=== PATIENT | male | born 1985 | race Caucasian/White ===

== ENCOUNTER 2018-12-13 10:58 | Emergency (ER) | payer OTHER ==
[2018-12-13 11:10] VITALS: BP 129/73; PULSE 66; RESP 18; TEMP 98
--- NOTE | 2018-12-13 11:32 | ED ---
General Adult HPI - General Chief complaint: Chest Pain Stated complaint: Chest pain Time Seen by Provider: 12/13/18 11:00 Source: EMS, RN notes reviewed Mode of arrival: EMS Limitations: no limitations - History of Present Illness Initial comments: This is a 33-year-old male who presents emergency Department complaining of right-sided chest pain. Patient states he was on his way to his parole eating and he was late so he was running and then started having chest pain and so he came to the emergency department. His symptoms I walked into the room patient states he no longer had chest pain he was no longer short of breath and he had no symptoms whatsoever. Patient states he thinks was just a panic attack because he was late so he did not want to have any workup done whatsoever and wanted to sign out AMA. I explained the risks tone and he insisted on signing out AMA. Review of Systems ROS Statement: Those systems with pertinent positive or pertinent negative responses have been documented in the HPI. ROS Other: All systems not noted in ROS Statement are negative. Past Medical History Past Medical History: No Reported History History of Any Multi-Drug Resistant Organisms: None Reported Past Surgical History: Appendectomy Additional Past Surgical History / Comment(s): Ulnar replacement L arm Past Psychological History: Anxiety Smoking Status: Current every day smoker Past Alcohol Use History: None Reported Past Drug Use History: Cocaine, Marijuana, Opiates General Exam - General Exam Comments Initial Comments: GENERAL: Patient is well-developed and well-nourished. Patient is nontoxic and well- hydrated and is in no acute distress. EYES: The sclera were anicteric and conjunctiva were pink and moist. Extraocular movements were intact and pupils were equal round and reactive to light. PULMONARY: Unlabored respirations. CARDIOVASCULAR: There is a regular rate and rhythm without any murmurs gallops or rubs. SKIN: Skin is clear with no lesions or rashes and otherwise unremarkable. NEUROLOGIC: Patient is alert and oriented x3. Cranial nerves II through XII are grossly intact. Normal speech, volume and content. Symmetrical smile. MUSCULOSKELETAL: Normal extremities with adequate strength and full range of motion. LYMPHATICS: No significant lymphadenopathy is noted PSYCHIATRIC: Normal psychiatric evaluation. Limitations: no limitations Course Vital Signs 12/13/18 11:06 Temperature 98.0 F Pulse Rate 66 Respiratory 18 Rate Blood Pressure 129/73 O2 Sat by Pulse 100 Oximetry Medical Decision Making - Medical Decision Making EKG shows normal sinus rhythm at 64 bpm DE interval 266 dresses under QT interva ls 394 QTC is 406. Patient's EKG shows no ST segment elevation or depression. Patient does have some Q waves in leads V1 and V2 and V3. I suggest the patient stay and at least get worked up he refused I told him the risks he continued to refuse and wanted to sign out immediately and in fact was taken off all stickers off his body. Disposition Clinical Impression: Chest pain Disposition: Left Against Medical Advice Instructions (If sedation given, give patient instructions): Chest Pain (ED) Is patient prescribed a controlled substance at d/c from ED?: No Referrals: None,Stated [Primary Care Provider] - 1-2 days Time of Disposition: 11:32
== END 2018-12-13 11:39 | disposition left against medical advice (07) ==
LOC: EC 10:58
DX: R07.9 Chest pain, unspecified (principal); F17.200 Nicotine dependence, unspecified, uncomplicated; Z53.29 Procedure and treatment not carried out because of patient's decision for other reasons; Z96.698 Presence of other orthopedic joint implants
CPT/HCPCS: 93005; 99285